=== PATIENT | male | born 1965 | race Caucasian/White ===

== ENCOUNTER 2017-03-24 14:16 | Outpatient (CLI) | payer OTHER | END 2017-03-24 15:57 | disposition home or self-care (01) | LOC: DCC 14:16 | DX: L02.31 Cutaneous abscess of buttock (principal) | CPT/HCPCS: G0463 ==

== ENCOUNTER 2017-07-14 11:54 | Day surgery (SDC) | payer OTHER ==
[~2017-07-14 11:54] MED LIST: CEFAZOLIN 2 GM/50 ML (PMX) 50 ML IVPB; LIDOCAINE 1%/EPI 30 ML INJ; SOD CHLORIDE 0.9% 1,000 ML IV
[2017-07-14 12:56] LABS: ADD MAN DIFF? NO
[2017-07-14 12:59] LABS: WHITE BLOOD COUNT 8.8 10^3/ul (4.8-10.8)
[2017-07-14 12:59] LABS: BASOPHIL # 0.1 10^3/ul (0.0-0.1); BASOPHILS % 0.7 % (0.0-2.0); EOSINOPHILS # 0.5 10^3/ul (0.0-0.5); EOSINOPHILS % 5.8 % (0.0-7.0); HEMATOCRIT 45.8 % (42.0-52.0); HEMOGLOBIN 15.4 g/dl (14.0-18.0); LYMPHOCYTES # 2.5 10^3/ul (0.8-2.9); LYMPHOCYTES % 27.9 % (15.0-51.0); MEAN CORPUSCULAR HEMOGLOBIN 27.6 pg (29.0-33.0); MEAN CORPUSCULAR HGB CONC 33.6 g/dl (32.0-37.0); MEAN CORPUSCULAR VOLUME 82.2 fl (82.0-101.0); MEAN PLATELET VOLUME 10.8 fl (7.4-10.4); MONOCYTE # 0.5 10^3/ul (0.3-0.9); MONOCYTES % 5.5 % (0.0-11.0); NEUTROPHIL # 5.3 10^3/ul (1.6-7.5); NEUTROPHILS % 59.8 % (39.0-77.0); PLATELET COUNT 198 10^3/UL (140-415); RED BLOOD COUNT 5.57 10^6/ul (4.70-6.10); RED CELL DISTRIBUTION WIDTH 12.7 % (11.5-14.5)
[2017-07-14 13:22] LABS: PROTIME 13.3 Sec (11.9-14.9)
[2017-07-14 13:25] LABS: PARTIAL THROMBOPLASTIN TIME 35.2 Sec (25.0-35.0)
[2017-07-14] MEDS ORDERED: ROCURONIUM 50 MG INJ ×2 (14:09→15:22)
[2017-07-14] MEDS ORDERED: LIDOCAINE 2% (SDV) 5 ML INJ (14:09)
[2017-07-14] MEDS ORDERED: NEOSTIGMINE 3 MG/3 ML SYRINGE ×2 (14:09→15:19)
[2017-07-14] MEDS ORDERED: MEPERIDINE 100 MG INJ (14:09)
[2017-07-14] MEDS ORDERED: GLYCOPYRROLATE 0.4 MG INJ ×2 (14:09→15:19)
[2017-07-14] MEDS ORDERED: SUCCINYLCHOLINE CHLORIDE 100 MG/5 ML SYG IV (14:09)
[2017-07-14] MEDS ORDERED: PROPOFOL 20 ML ×2 (14:09→14:45)
[2017-07-14] MEDS ORDERED: BUPIVACAINE 0.25% (MPF) 30 ML INJ ×2 (14:12)
[2017-07-14] MEDS ORDERED: METOCLOPRAMIDE 10 MG INJ IV (14:30)
[2017-07-14] MEDS ORDERED: FENTAnyl 50 MCG/ML VIAL IV ×3 (14:30)
[2017-07-14] MEDS ORDERED: OXYCODONE/ACETAMINOPHEN (5/325) TAB PO ×2 (14:30)
[2017-07-14] MEDS ORDERED: DIPHENHYDRAMINE 50 MG INJ IV (14:30)
[2017-07-14] MEDS ORDERED: EPHEDrine SULFATE 50 MG/5 ML SYG IV (14:30)
[2017-07-14] MEDS ORDERED: ONDANSETRON 4 MG INJ IV (14:30)
[2017-07-14] MEDS ORDERED: LABETALOL HCL 20MG INJ IV (14:30)
[2017-07-14] MEDS ORDERED: MIDAZOLAM 1 MG/ML 2 ML INJ IV (14:30)
[2017-07-14] MEDS ORDERED: MEPERIDINE 25 MG INJ IV (14:30)
[2017-07-14] MEDS ORDERED: hydrALAzine 20 MG INJ IV (14:30)
[2017-07-14] MEDS ORDERED: HYDROmorphONE (0.2 MG/ML) 10ML SYG IV ×3 (14:30)
[2017-07-14 14:43] LABS: ALANINE AMINOTRANSFERASE 27 IU/L (13-69); ALBUMIN 4.5 g/dl (3.3-4.9); ALBUMIN/GLOBULIN RATIO 1.25; ALKALINE PHOSPHATASE 73 IU/L (42-121); ANION GAP 17 (8-16); ASPARTATE AMINO TRANSFERASE 23 IU/L (15-46); BILIRUBIN,INDIRECT 0.5 mg/dl (0-1.1); BILIRUBIN,TOTAL 0.5 mg/dl (0.2-1.3); BLOOD UREA NITROGEN 18 mg/dl (7-20); CALCIUM 9.6 mg/dl (8.4-10.2); CARBON DIOXIDE 25 mmol/L (21-31); CHLORIDE 107 mmol/L (97-110); CREATININE 0.99 mg/dl (0.61-1.24); GLUCOSE 97 mg/dl (70-220); POTASSIUM 4.1 mmol/L (3.5-5.1); SODIUM 145 mmol/L (135-144); TOTAL PROTEIN 8.1 g/dl (6.1-8.1)
[2017-07-14] MEDS ORDERED: CEFAZOLIN 1 GM INJ (14:45)
[2017-07-14] MEDS ORDERED: FENTAnyl 50 MCG/ML VIAL ×2 (14:46→15:21)
[2017-07-14] MEDS ORDERED: MIDAZOLAM 1 MG/ML 2 ML INJ (14:46)
[2017-07-14] MEDS ORDERED: ONDANSETRON 4 MG INJ (15:00)
[2017-07-14] MEDS ORDERED: KETOROLAC 30 MG INJ (15:00)
[2017-07-14] MEDS ORDERED: DEXAMETHASONE 4 MG/ML 1 ML INJ (15:00)
[2017-07-14] MEDS ORDERED: METOCLOPRAMIDE 10 MG INJ (15:00)
[2017-07-14] MEDS ORDERED: PHENYLephrine (100 MCG/ML) 5ML SYG (15:22)
[2017-07-14] MEDS: BUPIVACAINE 0.5% (SDV) 30 ML INJ (15:27)
[2017-07-14] MEDS ORDERED: HYDROCODONE/APAP (5/325) TAB PO (15:30)
[2017-07-14] MEDS ORDERED: SUGAMMADEX SODIUM 200 MG/2 ML VIAL IV (16:10)
== END 2017-07-14 17:30 | disposition home or self-care (01) ==
LOC: SDS 11:54
DX: K60.3 Anal fistula (principal)
CPT/HCPCS: 46270; 80053; 85025; 85610; 85730; 88304; 93005